=== PATIENT | male | born 1960 | race Two or more races ===

== ENCOUNTER 2019-04-01 11:46 | Emergency (ER) | payer OTHER ==
[~2019-04-01] VITALS: Ht 185.4 cm; Wt 104.3 kg
[2019-04-01] MEDS ORDERED: DICLOFENAC SODI75 MG PO (13:08)
[2019-04-01] MEDS ORDERED: COLCRYS0.6 MG PO (13:08)
== END 2019-04-01 13:46 | disposition home or self-care (01) ==
LOC: ER 11:46
DX: M10.471 Other secondary gout, right ankle and foot (principal); M79.671 Pain in right foot